=== PATIENT | female | born 1980 | race Caucasian/White ===

== ENCOUNTER 2022-01-21 11:48 | Emergency (ER) | payer OTHER, SELFPAY ==
--- NOTE | ~2022-01-21 | XR_ITS ---
EXAMINATION: XR chest 2V EXAM DATE: 01/21/2022 12:34 INDICATION: cough congestion TECHNIQUE: Frontal and lateral projections of the chest obtained and reviewed. Comparison is made to prior examination from 11/04/2021. FINDINGS: Patchy right upper lobe pneumonia. The lungs are otherwise clear. There are no pleural ef fusions. The cardiomediastinal silhouette is within normal limits. There is no pneumothorax suspect ed. The bones and soft tissues are unremarkable. IMPRESSION: Patchy right upper lobe segmental pneumonia. Reviewed, dictated and finalized at location A. [facility]
[2022-01-21 12:01] VITALS: BP 118/71; PULSE 105; RESP 20; TEMP 36.7; O2SAT 98
--- NOTE | 2022-01-21 12:21 | ED.URI ---
HPI - URI/Sore Throat General Chief Complaint: Upper Respiratory Infection Stated Complaint: nasal and chest congestion,headache Time Seen by Provider: 01/21/22 11:52 Source: patient Mode of arrival: ambulatory Limitations: no limitations History of Present Illness HPI Narrative: 41-year-old female presents to [facility] with complaints of runny nose, nasal congestion, dry cough and sinus pressure for the past 7 to 10 days. Patient reports that she feels that her symptoms have become worse this morning as it is difficult to take a deep breath without coughing. Patient is a non-smoker. Patient is not COVID or influenza vaccinated. Patient reports that she had a sore throat at the time of onset of symptoms that that has since resolved. Patient denies sick contacts. Patient denies recent travel. MD elicited complaint: cough, sore throat, rhinorrhea, nasal congestion and sinus pain Onset (ago): week(s) (1) Able to tolerate fluids by mouth: Yes Treatments prior to arrival: none Related Data Home Medications Medication Instructions Recorded Confirmed bupropion HCl 300 mg PO DAILY 01/21/22 01/21/22 citalopram 40 mg PO DAILY 01/21/22 01/21/22 Allergies Allergy/AdvReac Type Severity Reaction Status Date / Time No Known Allergies Allergy Verified 01/21/22 12:17 Review of Systems Constitutional: Constitutional: Denies chills, Denies fatigue, Denies fever(s) and Denies weakness ENT: Reports nasal congestion Comments: Runny nose, sinus pressure Cardiovascular: Cardiovascular: Denies chest pain, Denies rapid heart rate and Denies slow heart rate Respiratory: Respiratory: Reports cough, Denies dyspnea and Denies wheezing Gastrointestinal: Gastrointestinal: Denies abdominal pain, Denies constipation, Denies diarrhea, Denies nausea and Denies vomiting Integumentary/Breasts: Skin/Breast: Denies rash Neurologic: Denies dizziness PMFSH Surgical History Surgical History (Updated 01/21/22 @ 12:24 by Kaylee Freed APRN) H/O dilation and curettage Family History Family History Father Hypertension Mother Hypertension Comments At time of signature, I agree with nursing past medical, surgical, social and family history. There is no relevant family history pertinent to the presenting complaint. Exam Const: General: no acute distress Nutritional Appearance: well nourished Orientation/consciousness: patient oriented x3 HENMT: Ears: external ears normal General nose exam: Normal external nose present Face and sinus: sinus tenderness Mouth: Yes Normal oral and palatal mucosa present, Yes lip normal and Yes moist mucous membranes Teeth and gingiva: dentition normal Other: Frontal sinus pressure noted upon palpation. Fluid levels noted to bilateral ears, left is worse than right. Nasal congestion noted. Neck: Neck: normal visual inspection Chest: Chest palpation & inspection: normal inspection of the chest Resp: Effort & Inspection: normal respiratory effort Auscultation: clear to auscultation bilaterally Other: Coughing noted with inspiration Cardio: Rate: regular rate Rhythm: regular rhythm GI: GI Palp: Yes Soft to palpation and No Tenderness to palpation present (GI) Skin: General skin exam: normal color Rashes: no rashes Wounds: no wounds Neuro: General: patient oriented x3 and moves all extremities Speech: normal speech Psych: Appearance: grossly normal Mental Status: mental status grossly normal Affect: normal affect Attitude: cooperative Thought content: Yes Normal thought content present Course Course Level of Care: Express Care Visit Vital Signs Vital signs: Vital Signs Temperature 36.7 C 01/21/22 12:01 Pulse Rate 105 H 01/21/22 12:01 Respiratory Rate 20 01/21/22 12:01 Blood Pressure 118/71 01/21/22 12:01 Pulse Oximetry 98 01/21/22 12:01 Temperature 36.7 C 01/21/22 12:01 Pulse Rate 105 H 01/21/22 12:01
== END 2022-01-21 12:51 | disposition home or self-care (01) ==
PROVIDERS: Emergency Provider Nurse Practitioner Family
DX: J18.9 Pneumonia, unspecified organism (principal); Z20.822 Contact with and (suspected) exposure to COVID-19; F41.9 Anxiety disorder, unspecified; F32.A Depression, unspecified
CPT/HCPCS: 71046; 87081; 87426; 87880; 99203; C9803; G0463